=== PATIENT | female | born 1965 | race Caucasian/White ===

== ENCOUNTER → 2018-07-03 | Outpatient (CLI) | payer OTHER | LOC: M SLEEP 19:43 | DX: R40.0 Somnolence (principal) | CPT/HCPCS: 95810 ==

== ENCOUNTER → 2020-01-05 | Outpatient (CLI) | payer OTHER | LOC: M LABSMTC 14:03 | PROVIDERS: ATTEND Family Medicine | DX: Z03.818 Encounter for observation for suspected exposure to other biological agents ruled out (principal); Z11.59 Encounter for screening for other viral diseases | CPT/HCPCS: C9803; U0003 ==

== ENCOUNTER → 2020-07-06 | Outpatient (CLI) | payer SELFPAY | LOC: M LABCAHC 08:34 | PROVIDERS: ATTEND Pediatrics | DX: Z11.59 Encounter for screening for other viral diseases (principal) ==

== ENCOUNTER → 2020-10-19 | Outpatient (CLI) | payer OTHER ==
--- NOTE | 2020-10-19 15:23 | REPPI ---
INDICATION: COUGH. COMPARISON: None TECHNIQUE: Upright PA and lateral chest. FINDINGS: The lung treviño are clear. Cardiac size is normal. The placido, mediastinum and skeletal structures are unremarkable. IMPRESSION: Essentially negative PA and lateral chest <Electronically signed by Néstor Palomo > 10/19/20 1014
== END ==
LOC: M PLAIMG 11:21
PROVIDERS: ATTEND Nurse Practitioner Adult Health
DX: R05 Cough (principal)

== ENCOUNTER → 2020-12-14 | Outpatient (CLI) | payer OTHER ==
[~2020-12-14] MED LIST: METHACHOLINE KIT (J7674) INH ONE
--- NOTE | 2020-12-14 13:35 | PFTRPT ---
Site: [facility], [address] [place], [address] ID: [id number] Name: FAITH HERNANDEZ Visit Date: 12/14/2020 Second ID: [id number] Referring Doctor: Fanta Jones Reviewing Doctor: Gianluca Sparks MD Welding Machine Feeder: Arnie GOMEZ RRT Age: 55 : 1965 Sex: Female Race: Height: 65.00 Inches Weight: 172.00 Lbs BSA: 1.86 Order IDs: [id number] Requested Test(s): <RESP-PFT.METH CHAL> Diagnosis: R05 of albuterol for post bronchodilator. Review Status: Not Reviewed Pre-Bronch Post-Bronch Pred Actual %Pred Actual %Chng SPIROMETRY FVC (L) 3.49 2.89 82 2.77 -4 FEV1 (L) 2.71 2.38 87 2.24 -5 FEV1/FVC (%) 79 82 104 81 -1 FEF 25% (L/sec) 5.14 4.47 87 4.33 -3 FEF 50% (L/sec) 3.69 2.71 73 2.62 -3 FEF 75% (L/sec) 1.26 1.14 90 0.76 -33 FEF 25-75% (L/sec) 2.50 2.40 95 1.95 -18 FEF Max (L/sec) 6.56 6.15 93 5.65 -8 FIVC (L) 2.97 2.70 -9 FIF 50% (L/sec) 3.61 4.82 133 3.11 -35 FIF Max (L/sec) 5.01 3.15 -37 Expiratory Time (sec) 7.05 6.96 -1 Back Extrap Vol (L) 0.05 0.05 Time To FEFmax (sec) 0.056 0.061 8
== END ==
LOC: M CARPUL 12:30
PROVIDERS: ATTEND Nurse Practitioner Adult Health
DX: R05 Cough (principal)